=== PATIENT | male | born 1975 | race Caucasian/White ===

== ENCOUNTER 2020-07-01 02:40 | Emergency (ER) | payer SELFPAY ==
[2020-07-01] MEDS ORDERED: NORMAL SALINE 1000 ML 1,000 ML IV ONE ×2 (03:37→06:34)
--- NOTE | 2020-07-01 03:37 | ER Document Report ---
ED Fever - General Chief Complaint: Headache Stated Complaint: RINGWORM IN HEAD Time Seen by Provider: 07/01/20 02:56 Primary Care Provider: TRA,NO [Primary Care Provider] - Follow up as needed Mode of Arrival: Ambulatory Information source: Patient Notes: 45-year-old male patient presenting to the emergency department chief complaint of headache that has been ongoing for last 2 days with fever and nausea. Denies photophobia or phonophobia. the fever for started tonight at 730. He also reports generalized body aches. He states he has a lesion on the back of his head that him and his think it might be ringworm. He is a daily smoker. He denies any known covert exposure, states he works alone and not around a bunch of people. He denies taking any daily medications. He did take a BC powder this evening at 8:00 for his fever. He denies any past medical history but states that he does not see a doctor. - Related Data Allergies/Adverse Reactions: No Known Allergies Allergy (Verified 07/01/20 04:01) Past Medical History - General Information source: Patient - Social History Smoking Status: Current Every Day Smoker Chew tobacco use (# tins/day): No Frequency of alcohol use: Social Drug Abuse: None Family History: Reviewed & Not Pertinent - Medical History Medical History: Negative Past Surgical History: Reports: Hx Orthopedic Surgery - L ankle - Immunizations Hx Diphtheria, Pertussis, Tetanus Vaccination: No Review of Systems - Review of Systems Constitutional: Chills, Fever EENT: No symptoms reported Cardiovascular: No symptoms reported Respiratory: No symptoms reported Gastrointestinal: Nausea Genitourinary: No symptoms reported Male Genitourinary: No symptoms reported Musculoskeletal: Muscle pain Skin: See HPI Hematologic/Lymphatic: No symptoms reported Neurological/Psychological: Headaches Physical Exam - Vital signs Vitals: Temp Pulse Resp BP Pulse Ox 101.4 F H 84 18 123/71 96 07/01/20 03:02 07/01/20 03:02 07/01/20 03:02 07/01/20 03:02 07/01/20 03:02 - Notes Notes: PHYSICAL EXAMINATION: GENERAL: Appears to be stated age, no acute distress. HEAD: Atraumatic, normocephalic. EYES: Pupils equal round and reactive to light, extraocular movements intact, sclera anicteric, conjunctiva are normal. ENT: Nares patent, oropharynx clear without exudates. Moist mucous membranes. NECK: Normal range of motion, supple without lymphadenopathy. No nuchal rigidity. LUNGS: Breath sounds clear to auscultation bilaterally and equal. No wheezes rales or rhonchi. HEART: Regular rate and rhythm without murmurs ABDOMEN: Soft, nontender, nondistended abdomen. No guarding, no rebound. No masses appreciated. Musculoskeletal: Normal range of motion, no pitting or edema. No cyanosis. NEUROLOGICAL: Cranial nerves grossly intact. Normal speech, normal gait. Normal sensory, motor exams PSYCH: Normal mood, normal affect. SKIN: Palpable swollen area to right side of scalp just posterior to the ear. Course - Re-evaluation Re-evalutation: Patient appears well, nontoxic. His work-up today in the emergency department has been reassuring. I have consulted with my attending physician regarding patient's neck pain with forward flexion. Patient has pain that radiates up into his head. There is no nuchal rigidity. He does report he feels improved after administration of IV fluids here in the emergency department. - Vital Signs Vital signs: Temp Pulse Resp BP Pulse Ox 99.9 F 84 18 123/71 96 07/01/20 05:51 07/01/20 03:02 07/01/20 03:02 07/01/20 03:02 07/01/20 03:02 - Laboratory Result Diagrams: 07/01/20 04:16 07/01/20 04:16 Laboratory results interpreted by me: 07/01/20 07/01/20 07/01/20 04:16 04:16 04:16 MCH 33.6 H MCHC 36.1 H Sodium 134.4 L Carbon Dioxide 20 L Glucose 188 H Hemoglobin A1c % 8.2 H Urine Glucose (UA) Urine Ketones 07/01/20 05:27 MCH MCHC Sodium Carbon Dioxide Glucose Hemoglobin A1c % Urine Glucose (UA) >=500 H Urine Ketones TRACE H Discharge - Discharge Clinical Impression: Viral illness, Encounter for laboratory testing for COVID-19 virus, Elevated random blood glucose level, Elevated hemoglobin A1c Condition: Stable Disposition: HOME, SELF-CARE Instructions: COVID-19 Guidance for Persons Under Investigation Additional Instructions: Your work-up today was reassuring. Your symptoms are likely consistent with a viral illness. We have tested you for COVID-19. This test will take approximately 2 days to come back. Self quarantine until you have received these results. Someone will call you with the results once they are ready. If you were prescribed medications during today's visit please take them exactly as prescribed. Push fluids. Get plenty of rest. Tylenol or Motrin for fever, headache and body aches. Good handwashing and stay away from others. Return to the emergency department with any new or worsening symptoms such as difficulty breathing, or any other worsening symptoms. Forms: Return to Work Referrals: LOCAL,NO [Primary Care Provider] - Follow up as needed
--- NOTE | 2020-07-01 04:42 | RADIOLOGY REPORT (SQ) ---
CLINICAL HISTORY: fever COMPARISON: None. TECHNIQUE: XR CHEST 1 VIEW 07/01/2020 3:36 AM CDT FINDINGS: Cardiac silhouette is normal in size. Lungs are clear without consolidation, atelectasis, mass or edema. There is no pleural effusion. There is no pneumothorax. There are no acute osseous findings. IMPRESSION: Clear lungs.
[2020-07-01 04:48] LABS: ABSOLUTE BASOPHILS # (AUTO) 0.1 10^3/uL (0.0-0.2); ABSOLUTE EOSINOPHILS # (AUTO) 0.2 10^3/uL (0.0-0.6); ABSOLUTE LYMPHOCYTES (AUTO) 1.7 10^3/uL (0.5-4.7); ABSOLUTE MONOCYTES (AUTO) 0.7 10^3/uL (0.1-1.4); ABSOLUTE NEUT (AUTO) 6.9 10^3/uL (1.7-8.2); BASOPHILS % (AUTO) 0.9 % (0-2); EOSINOPHILS % (AUTO) 1.6 % (0-6); HEMOGLOBIN 16.3 g/dL (13.5-17.0); LYMPHOCYTES % (AUTO) 17.8 % (13-45); MEAN CORPUSCULAR HEMOGLOBIN 33.6 pg (27.0-33.4); MEAN CORPUSCULAR HGB CONC 36.1 g/dL (32.0-36.0); MEAN CORPUSCULAR VOLUME 93 fl (80-97); MONOCYTES % (AUTO) 7.6 % (3-13); PLATELET COUNT 238 10^3/uL (150-450); RED BLOOD COUNT 4.84 10^6/uL (4.35-5.55); RED CELL DISTRIBUTION WIDTH 13.1 % (11.5-14.0); SEGMENTED NEUTROPHILS % (AUTO) 72.1 % (42-78); TOTAL CELLS COUNTED % (AUTO) 100 %; WHITE BLOOD COUNT 9.6 10^3/uL (4.0-10.5)
[2020-07-01 05:02] LABS: ALBUMIN 4.1 g/dL (3.5-5.0); ALKALINE PHOSPHATASE 65 U/L (38-126); ANION GAP 10 (5-19); ASPARTATE AMINO TRANSFERASE 21 U/L (17-59); BILIRUBIN,DIRECT 0.2 mg/dL (0.0-0.4); BILIRUBIN,TOTAL 0.7 mg/dL (0.2-1.3); BLOOD UREA NITROGEN 13 mg/dL (7-20); CALCIUM 9.1 mg/dL (8.4-10.2); CARBON DIOXIDE 20 mmol/L (22-30); CHLORIDE 104 mmol/L (98-107); GLUCOSE 188 mg/dL (75-110); POTASSIUM 4.3 mmol/L (3.6-5.0); TOTAL PROTEIN 6.8 g/dL (6.3-8.2)
[2020-07-01 05:03] LABS: A TYPE INFLUENZA AG NEGATIVE (NEGATIVE); B INFLUENZA AG NEGATIVE (NEGATIVE)
[2020-07-01 05:48] LABS: APPEARANCE,URINE CLEAR; BILIRUBIN,URINE NEGATIVE (NEGATIVE); COLOR,URINE YELLOW; GLUCOSE, URINE >=500 mg/dL (NEGATIVE); KETONES,URINE TRACE mg/dL (NEGATIVE); LEUKOCYTE ESTERASE,URINE NEGATIVE (NEGATIVE); NITRITE,URINE NEGATIVE (NEGATIVE); PROTEIN,URINE NEGATIVE (NEGATIVE); UROBILINOGEN,URINE NEGATIVE mg/dL (<2.0)
--- NOTE | 2020-07-01 07:54 | ER Document Report ---
Doctor's Note Notes: 07/01/20 07:51 Requested to consult on patient who presents with history of fever headache and complaints of pain when he moves his neck. Patient has presented with a temp of 101+ which is now resolved down to 99. Patient nontoxic-appearing alert oriented. Patient ambulates in the room without any signs of distress or a taxia.. Patient's neck is supple with full range of motion and no neutral rigidity. Patient otherwise has normal exam. Patient does complain of some redness to his scalp which he assigns it to possible ringworm. Patient has a negative work-up for sepsis at this time including influenza AMB negative also normal-appearing chest x-ray and laboratories are within normal limits. Patient does not have an elevated white blood cell count. Assessment and plan most likely viral syndrome. COVID-19 testing is being done prior to discharge. Patient is explained self quarantine and follow-up with his primary care physician.
[2020-07-01] MEDS ORDERED: IBUPROFEN 600 MG TABLET PO ONE (08:35)
[2020-07-01] MEDS ORDERED: ACETAMINOPHEN 325 MG TABLET PO ONE (08:35)
[2020-07-01 09:34] VITALS: BP 144/75
== END 2020-07-01 08:50 | disposition home or self-care (01) ==
LOC: ER 02:40
DX: B34.9 Viral infection, unspecified (principal); L53.9 Erythematous condition, unspecified; R22.0 Localized swelling, mass and lump, head; M54.2 Cervicalgia; R51.9 Headache, unspecified; R73.9 Hyperglycemia, unspecified; R50.9 Fever, unspecified; M79.10 Myalgia, unspecified site; R11.0 Nausea; F17.200 Nicotine dependence, unspecified, uncomplicated; Z20.828 Contact with and (suspected) exposure to other viral communicable diseases
CPT/HCPCS: 99284; 96360; 96361; 36415; 87040; 83605; 85025; 87635; 80053; 81001; 83036; 87804; 71045; J7030; C9803